=== PATIENT | male | born 1965 | race Caucasian/White ===

== ENCOUNTER → 2017-07-07 | Outpatient (CLI) | payer BC ==
[~2017-07-07] MED LIST: ASCO-96 PO; ASPI-496 PO; IBUP-1484 PO; MULT-751 PO; VITA1TAB19 PO
[2017-07-07 10:41] LABS: BLOOD UREA NITROGEN 16 mg/dL (7-18)
[2017-07-07 10:50] LABS: HEMATOCRIT 47.8 % (39.2-51.8); HEMOGLOBIN 15.9 g/dL (13.7-18.0); WHITE BLOOD COUNT 4.9 x10^3/uL (3.4-10)
== END | disposition home or self-care (01) ==
LOC: STAR 09:23
PROVIDERS: ATTEND Orthopaedic Surgery
DX: Z01.818 Encounter for other preprocedural examination (principal); M17.11 Unilateral primary osteoarthritis, right knee; R79.1 Abnormal coagulation profile; R79.89 Other specified abnormal findings of blood chemistry
CPT/HCPCS: 36415; 80048; 83036; 85025; 85610; 85730; 87081

== ENCOUNTER 2017-07-14 07:27 | Inpatient (IN) | payer BC ==
[~2017-07-14] VITALS: Ht 185.4 cm; Wt 111.8 kg
[~2017-07-14 07:27] MED LIST changes: +EPINEPHRINE 1 MG/ML, 1ML ONE; +KETOROLAC 60 MG/2 ML ONE; +ROPIvacaine/PF 0.5%, 30 ML ONE; +SODIUM CHLORIDE 0.9% 50 ML ONE; +TRANEXAMIC ACID 100 MG/ML, 10ML ONE; +VANCOMYCIN 1,000 MG ONE
[2017-07-14] MEDS ORDERED: MIDAZOLAM 1 MG/ML, 5ML ONE (08:10)
[2017-07-14] MEDS ORDERED: FENTANYL PF 100 MCG/2ML ONE (08:10)
[2017-07-14 08:14] VITALS: BP 144/105
[2017-07-14] MEDS ORDERED: ROPIvacaine/PF 0.2%, 20 ML ONE (08:15)
[2017-07-14] MEDS ORDERED: ACETAMINOPHEN 500 MG TABLET ONE (08:29)
[2017-07-14] MEDS ORDERED: GABAPENTIN 300 MG CAPSULE ONE (08:32)
[2017-07-14] MEDS ORDERED: LIDOCAINE 1%, 2ML ONE (08:42)
[2017-07-14] MEDS: SODIUM CHLORIDE FLUSH 10ML SYR IVF SCH ×2 (09:00→20:58)
[2017-07-14] MEDS ORDERED: BISACODYL 10 MG SUPP PR PRN (09:00)
[2017-07-14] MEDS ORDERED: ACETAMINOPHEN 650 MG/20.3 ML UDC PO PRN (09:00)
[2017-07-14] MEDS ORDERED: SENNA/DOCUSATE TABLET PO PRN (09:00)
[2017-07-14] MEDS ORDERED: ZOLPIDEM 5MG TABLET PO PRN (09:00)
[2017-07-14] MEDS ORDERED: GABAPENTIN 300 MG CAPSULE PO ONE (09:00)
[2017-07-14] MEDS ORDERED: ACETAMINOPHEN 500 MG TABLET PO ONE (09:00)
[2017-07-14] MEDS ORDERED: DIAZEPAM 5 MG/ML, 2ML IVPush PRN (09:00)
[2017-07-14] MEDS: DOCUSATE 100 MG CAPSULE PO SCH ×2 (09:00→20:58)
[2017-07-14] MEDS ORDERED: SCOPOLAMINE PATCH, 1.5MG PATCH.TD72 TD SCH (09:00)
[2017-07-14] MEDS ORDERED: DIPHENHYDRAMINE 50 MG CAPSULE PO PRN (09:00)
[2017-07-14] MEDS ORDERED: MAGNESIUM HYDROXIDE 8%, 30ML UDC PO PRN (09:00)
[2017-07-14] MEDS: MULTIVITAMINS/MINERALS TABLET PO SCH (09:00)
[2017-07-14] MEDS ORDERED: DIAZEPAM 5 MG TABLET PO PRN (09:00)
[2017-07-14] MEDS ORDERED: ONDANSETRON 2MG/ML, 2ML IV PRN (09:00)
[2017-07-14] MEDS ORDERED: ALUMINUM/MAG/SIMETHICONE 30 ML UDC PO PRN (09:00)
[2017-07-14] MEDS ORDERED: PROMETHAZINE 25 MG/ML, 1ML IM PRN (09:00)
[2017-07-14] MEDS ORDERED: PROMETHAZINE 12.5 MG SUPP PR PRN (09:00)
[2017-07-14] MEDS ORDERED: ONDANSETRON 4 MG TABLET PO PRN (09:00)
[2017-07-14] MEDS ORDERED: DEXAMETHASONE 4 MG/ML, 5ML ONE (09:21)
[2017-07-14] MEDS ORDERED: CEFAZOLIN 1,000 MG ONE (09:21)
[2017-07-14] MEDS ORDERED: PROPOFOL 10 MG/ML, 20ML ONE (09:21)
[2017-07-14] MEDS ORDERED: ONDANSETRON 2MG/ML, 2ML ONE (09:21)
[2017-07-14] MEDS ORDERED: OXYcodone 5 MG/5 ML ORAL.SOL UDC PO PRN (10:00)
[2017-07-14] MEDS ORDERED: HYDROmorphone 1 MG/ML, 1ML IV PRN (10:00)
[2017-07-14] MEDS ORDERED: PROMETHAZINE 25 MG/ML, 1ML IV PRN (10:00)
[2017-07-14] MEDS ORDERED: MEPERIDINE/PF 25MG/0.5ML IVPush PRN (10:00)
[2017-07-14] MEDS ORDERED: FENTANYL PF 100 MCG/2ML IV PRN (10:00)
[2017-07-14] MEDS ORDERED: ROPIvacaine/PF 0.2%, 100ML 550 ML (check volume) INJ ONE (10:00)
[2017-07-14] MEDS ORDERED: CEFAZOLIN PMX 2GM/100ML 100 ML IV SCH (13:00)
[2017-07-14] MEDS: D5%-0.45% NACL 1,000 ML IV SCH ×2 (14:09→22:20)
[2017-07-14 14:25] VITALS: BP 118/72
[2017-07-14 19:35] VITALS: BP 128/80
[2017-07-14] MEDS: ASPIRIN 81 MG TABLET CHEW PO SCH (20:58)
[2017-07-14 23:48] VITALS: BP 120/75
[2017-07-15] MEDS ORDERED: CEFAZOLIN PMX 2GM/100ML 100 ML IV SCH ×2 (01:30)
[2017-07-15] MEDS ORDERED: CEFAZOLIN PMX 2GM/50ML 50 ML IV SCH (01:30)
[2017-07-15 04:11] VITALS: BP 109/54
[2017-07-15 05:30] LABS: HEMATOCRIT 37.3 % (39.2-51.8); HEMOGLOBIN 12.8 g/dL (13.7-18.0)
[2017-07-15] MEDS ORDERED: DEXAMETHASONE 4 MG/ML, 1ML IVPush SCH (06:00)
[2017-07-15 06:41] VITALS: BP 115/78
[2017-07-15 06:46] VITALS: BP 95/61
[2017-07-15] MEDS: MULTIVITAMINS/MINERALS TABLET PO SCH (07:59)
[2017-07-15] MEDS: DOCUSATE 100 MG CAPSULE PO SCH (07:59)
[2017-07-15] MEDS: ASPIRIN 81 MG TABLET CHEW PO SCH (07:59)
[2017-07-15] MEDS: D5%-0.45% NACL 1,000 ML IV SCH (08:00)
[2017-07-15] MEDS: SODIUM CHLORIDE FLUSH 10ML SYR IVF SCH (08:07)
[2017-07-15] MEDS ORDERED: MULTIVITAMIN 1 TABLET PO SCH (09:00)
[2017-07-15] MEDS ORDERED: CENTRUM SILVER MEN PO SCH (09:00)
[2017-07-15] MEDS ORDERED: ASCORBIC ACID 500 MG TABLET PO SCH ×2 (09:00)
[2017-07-15] MEDS ORDERED: THIAMINE 50MG TABLET PO SCH (09:00)
[2017-07-15] MEDS ORDERED: MULTIVITS,STRESS FORMULA 1 TABLET PO SCH (09:00)
[2017-07-15] MEDS ORDERED: TRAM50TA2 PO (09:39)
[2017-07-15] MEDS ORDERED: OXYC5TAB3 PO (09:39)
[2017-07-15] MEDS ORDERED: MELO7.5T31 PO (09:40)
[2017-07-15] MEDS ORDERED: ONDA4TAB10 PO (09:40)
[2017-07-15] MEDS ORDERED: ASPI-515 PO (09:41)
== END 2017-07-15 12:20 | disposition home or self-care (01) | DRG 468 ==
LOC: ORIP 07:27 → 4NOR 12:25
PROVIDERS: ADMIT Orthopaedic Surgery; ATTEND Orthopaedic Surgery
PROC: 0SPC0JZ Removal of Synthetic Substitute from Right Knee Joint, Open Approach (ICD-10-PCS; 2017-07-14)
PROC: 0SRC0J9 Replacement of Right Knee Joint with Synthetic Substitute, Cemented, Open Approach (ICD-10-PCS; principal; 2017-07-14 09:30)
DX: M17.11 Unilateral primary osteoarthritis, right knee (principal); Z96.651 Presence of right artificial knee joint
CPT/HCPCS: 36415; 85014; 85018; C1713; J0171; J0690; J1100; J1885; J2250; J2405; J2704; J2795; J3010; J3370; C1776